=== PATIENT | female | born 1980 | race African-American/Black ===

== ENCOUNTER 2020-04-15 02:07 | Emergency (ER) | payer OTHER ==
[~2020-04-15] VITALS: Ht 154.9 cm; Wt 44.9 kg
[~2020-04-15 02:07] MED LIST: NOHOMEMEDICATIONS
[2020-04-15] MEDS ORDERED: IRON325 M1 PO (02:14)
[2020-04-15] MEDS ORDERED: PROAIR HFA8.5 GM (02:14)
[2020-04-15 13:00] VITALS: BP 100/61
== END 2020-04-15 13:00 | disposition home or self-care (01) ==
LOC: ER 02:07
DX: F10.129 Alcohol abuse with intoxication, unspecified (principal); Z79.899 Other long term (current) drug therapy